=== PATIENT | female | born 1940 | race Asian ===

== ENCOUNTER 2023-09-19 21:12 | Emergency (ER) | payer BC ==
[~2023-09-19] VITALS: Ht 167.6 cm; Wt 63.0 kg
[2023-09-19 21:25] VITALS: TEMP 101.4; O2SAT 97
[2023-09-19] MEDS ORDERED: IOHEXOL-350 100 ML BOTTLE ONE (23:23)
[2023-09-19 23:42] LABS: HEMATOCRIT. 29.3 % (36.0-48.0); HEMOGLOBIN. 9.6 g/dL (12.0-16.0); MEAN CORPUSCULAR HEMOGLOBIN 27.3 pg (28.0-32.0); MEAN CORPUSCULAR HGB CONC 32.7 g/dL (31.0-37.0); MEAN CORPUSCULAR VOLUME 83.3 fL (81.0-99.0); MEAN PLATELET VOLUME 10.8 fl (7.4-10.4); PLATELET 102 x1000/uL (130-400); RED BLOOD CELL COUNT 3.51 mill/uL (4.2-5.4); WHITE BLOOD COUNT 10.9 x1000/uL (4.5-11.0)
[2023-09-19 23:50] LABS: PROTHROMBIN TIME 11.3 sec (9.6-11.0)
[2023-09-19 23:54] LABS: ALANINE AMINOTRANSFERASE 13 IU/L (10-49); ALBUMIN 4.1 g/dL (3.2-4.8); ASPARTATE AMINOTRANSFERASE 20 IU/L (<34); BILIRUBIN TOTAL 1.5 mg/dL (0.1-1.0); CALCIUM 8.6 mg/dL (8.7-10.4); CARBON DIOXIDE 24 mEq/L (21-32); CHLORIDE 99 mEq/L (98-107); CREATINE KINASE 65 IU/L (34-145); CREATININE 1.2 mg/dL (0.6-1.0); ETHANOL BLOOD < 10 mg/dL (<10); GLUCOSE 261 mg/dL (70-105); POTASSIUM 3.9 mEq/L (3.5-5.1); PROTEIN TOTAL 7.6 g/dL (6.0-8.3); SODIUM 131 mEq/L (136-145); UREA NITROGEN BLOOD 18 mg/dL (9-23)
[2023-09-19 23:56] LABS: TROPONIN I HIGH SENSITIVITY 47 ng/L (3.0-34)
[2023-09-20 00:06] LABS: DIFFERENTIAL COMMENT 1
[2023-09-20] MEDS: VANCOMYCIN 1G PREMIX 200 ML IV ONE (00:30)
[2023-09-20 01:12] LABS: PLATELET ESTIMATE NORMAL
[2023-09-20] MEDS: LEVOFLOXACIN 750MG PREMIX 150 ML IV ONE (01:59)
[2023-09-20] MEDS: SODIUM CHLORIDE 0.9% 1000ML BAG (SEPSIS BOLUS) IV ONE (01:59)
[2023-09-20] MEDS: ASPIRIN 81MG TABLET PO ONE (02:09)
[2023-09-20] MEDS: ACETAMINOPHEN 325MG TABLET PO NR (02:13)
[2023-09-20] MEDS: CLOPIDOGREL 75MG TABLET PO ONE (02:13)
[2023-09-20] MEDS: ACETAMINOPHEN 325MG TABLET PO STA (02:14)
[2023-09-20 09:37] VITALS: BP 112/93; PULSE 55; RESP 16
== END 2023-09-20 09:48 | disposition short-term general hospital (02) ==
LOC: ER 21:12 → EDBEDREQSVC 09-20 01:33 → EDBEDREQ 09-20 01:50 → EDBEDREQTM 09-20 01:50 → EDBEDREQDT 09-20 01:50 → CANBEDREQ 09-20 09:34 → ER 09-20 09:48
DX: A41.9 Sepsis, unspecified organism (principal); I63.9 Cerebral infarction, unspecified; E87.20 Acidosis, unspecified; E11.9 Type 2 diabetes mellitus without complications; I10 Essential (primary) hypertension; Z88.0 Allergy status to penicillin
CPT/HCPCS: 80053; 80320; 82550; 83605; 85025; 85610; 84484; 87077; 36415; 71045; 70496; 70498; 70450; 93005; 96368; 96365; 96366; 99291; 87040; 87186; Q9967; J7030; J3370; J1956; G0480